=== PATIENT | female | born 1960 | race Caucasian/White ===

== ENCOUNTER 2019-04-21 08:25 | Inpatient (IN) ==
--- NOTE | 2019-03-25 14:50 | PAT Medication Instructions ---
Medication Instructions Date of Service March 25, 2019 Home Medications celecoxib [Celebrex] 200 mg PO BID levothyroxine 25 mcg PO QAM multivitamin 1 tab PO HS travoprost 1 drp OPHTHALMIC (EYE) PM ASK your surgeon for instructions celecoxib [Celebrex] 200 mg PO BID Take morning of surgery With a small sip of water, OTHERWISE NOTHING TO EAT OR DRINK AFTER MIDNIGHT: levothyroxine 25 mcg PO QAM Take evening before surgery multivitamin 1 tab PO HS travoprost 1 drp OPHTHALMIC (EYE) PM Other Notes If you have any questions please call us at [phone] or [phone] or [phone] or [phone]
--- NOTE | 2019-03-26 14:25 | Anesthesiology Consultation ---
Date of Service March 26, 2019 Assessment & Plan (1) Encounter for pre-operative examination: Chart Review Chart Review: Acceptable Risk for Surgery (pending surgeon-ordered PCP clearance scheduled 04/13 (Dr. Mcintosh; [place])) and Patient seen in Pre Admission Testing Teaching & Discussion Pre-Anesthesia Teaching/Discussion Notes: Instructed NPO after midnight before surgery,except medications with 15 cc of water. Medication instructions provided according to the PAT guidelines. History Surgery Operation Date: 04/21/19 10:15 Proposed Procedures p Right Anterior Total Hip Arthroplasty - Ramin Hamilton DO Height/Weight Height: 5 ft 1 in Weight: 73.2 kg Allergies Allergy/AdvReac Type Severity Reaction Status Date / Time No Known Allergies Allergy Verified 03/23/19 07:03 Medications Home Medications Medication Instructions Recorded Confirmed Last Taken celecoxib [Celebrex] 200 mg PO BID 03/23/19 03/23/19 Unknown levothyroxine 25 mcg PO QAM 03/23/19 03/23/19 Unknown multivitamin 1 tab PO HS 03/23/19 03/23/19 Unknown travoprost 1 drp OPHTHALMIC (EYE) PM 03/23/19 03/23/19 Unknown Past Medical History Medical History Diverticular disease Glaucoma Herniated disc L4-L5 (asymptomatic) Hypothyroidism Migraine hx Osteoarthritis Exercise / Class Metabolic Activity II 4-5 Yardwork/Stairs/Walk up hill Past Family History Family History Other No pertinent family history Past Surgical History Surgical History History of bilateral tubal ligation History of cataract surgery bilateral History of colonoscopy History of tonsillectomy S/P bunionectomy bilateral Past Anesthesia History No Hx of Anesthesia Complications and No Family Hx of Anesthesia Complications History of PONV No Hx of PONV and No Hx of Motion Sickness Social History Smoking Status: Former smoker tobacco type: cigarettes Do You Dip or Chew Tobacco: No Smoking End Date: Quit 2014 Hx Alcohol Use: Yes Alcohol type: wine and hard liquor alcohol intake frequency: a few times a week Hx Substance Use: No substance use type: does not use Review of Systems Patient denies chest pain, shortness of breath, dyspnea on exertion, reflux, cough, wheezing, palpitations. Physical Exam Vital Signs VITALS BP right: 168/98; manual recheck on left: 132/90 (Patient advised to followup with PCP regarding elevated BP) P 74 TEMP 98.1 SP02 96%RA RESP 18 PHYSICAL Full neck and c-spine range of motion. Full TMJ range of motion. TMD 3.5 finger breaths Mallampati Score 2 Dentition: intact, crowns upper left side, permanent bridge upper/lower right sides Lungs: clear throughout to auscultation Cardiac: regular rate and rhythm, no murmurs noted Spine: normal Carotid arteries: negative bruit Extremities: no edema Testing Laboratory Results 03/26/19 14:58 03/26/19 14:58 PT 10.4 Seconds (9.0-12.0) 03/26/19 14:58 INR 1.0 (0.9-1.1) 03/26/19 14:58 APTT 24.2 Seconds (21.0-31.0) 03/26/19 14:58 Hemoglobin A1c 5.5 % (4.5-5.6) 03/26/19 14:58 Urine Color Yellow 03/26/19 14:58 Urine Appearance Clear (Clear) 03/26/19 14:58 Urine pH 5.0 (4.5-7.5) 03/26/19 14:58 Ur Specific [place] 1.024 (1.000-1.030) 03/26/19 14:58 Urine Protein Negative (Negative) 03/26/19 14:58 Urine Glucose (UA) Negative (Negative) 03/26/19 14:58 Urine Ketones Negative (Negative) 03/26/19 14:58 Urine Nitrite Negative (Negative) 03/26/19 14:58 Ur Leukocyte Esterase Negative (Negative) 03/26/19 14:58 Blood Type A Positive 03/26/19 14:58 Antibody Screen NEGATIVE 03/26/19 14:58 03/26/19 14:58 Urine Culture - Final Urine,Clean Catch Three types of organisms present, all low counts probable skin christian. No further identifications or sensitivities to follow. Electrocardiogram Date: 03/26/19 Findings: + NSR @ (70) Chest X-Ray Date: 03/26/19 Findings: + NAD
--- NOTE | 2019-03-26 15:37 | XRay Report ---
XR chest Pre-admission PA/Lat HISTORY: Preop. COMPARISON: None. FINDINGS: The lungs are clear. Cardiac silhouette is normal in size. No pleural effusions. No pneumot horax. IMPRESSION: No acute process. Electronically signed by: Trevin Muro M.D. 03/26/2019 3:36 PM
[2019-03-26 15:57] LABS: Basophils # (auto) 0.02 K/uL (0-0.2); Basophils % (auto) 0.4 %; Eosinophils # (auto) 0.08 K/uL (0-0.5); Eosinophils % (auto) 1.8 %; Hematocrit (blood only) 42.8 % (37-47); Hemoglobin 14.3 g/dL (12.0-16.0); Immature Granulocytes # (auto) 0.02 K/uL (0.00-0.02); Immature Granulocytes % (auto) 0.4 %; Lymphocytes # (auto) 1.59 K/uL (1.2-3.4); Lymphocytes % (auto) 35.7 %; Mean Corpuscular Hemoglobin 32.7 pg (25-34); Mean Corpuscular Hgb Conc 33.4 g/dL (32-36); Mean Corpuscular Volume 97.9 fL (80-100); Mean Platelet Volume 10.5 fL (7.4-10.4); Monocytes # (auto) 0.32 K/uL (0.11-0.59); Monocytes % (auto) 7.2 %; Neutrophils # (auto) 2.43 K/uL (1.4-6.5); Neutrophils % (auto) 54.5 %; Platelet Count 189 K/uL (130-400); RDW Standard Deviation 46.6 fL (36.4-46.3); Red Blood Count 4.37 M/uL (4.2-5.4); White Blood Count 4.46 K/uL (4.8-10.8)
[2019-03-26 16:08] LABS: Appearance Urine Clear (Clear); Bilirubin Urine Negative (Negative); Blood Urine Negative (Negative); Color Urine Yellow; Glucose Urine UA Negative (Negative); Ketones Urine Negative (Negative); Leukocyte Esterase Urine Negative (Negative); Nitrite Urine Negative (Negative); Protein Urine Negative (Negative); Specific Gravity Urine 1.024 (1.000-1.030); Urobilinogen Urine Negative (Negative)
[2019-03-26 16:14] LABS: Partial Thromboplastin Ratio 0.9; Partial Thromboplastin Time 24.2 Seconds (21.0-31.0); Prothrombin Time 10.4 Seconds (9.0-12.0)
[2019-03-26 16:15] LABS: Albumin Level 4.1 gm/dl (3.4-5.0); BUN Creatinine Ratio 16.5 (10-20); Calcium 9.7 mg/dl (8.5-10.1); Creatinine Clr Calc Pharmacy 58.3 ml/min; Est GFR (Non-African American) 65.6; Potassium 4.3 mmol/L (3.5-5.1)
[2019-03-27 06:59] LABS: Estimated Average Glucose 111 mg/dl; Hemoglobin A1C 5.5 % (4.5-5.6)
--- NOTE | 2019-04-20 13:28 | History & Physical Report ---
Date of Service April 20, 2019 Assessment & Plan (1) Degenerative joint disease of right hip: I have indicated the patient for right anterior total hip replacement. The risks, benefits and complications of surgery were explained to the patient which include but not limited to infection, acute blood loss, DVT/PE, injury to nerves, vessels, bone, soft tissue, arthrofibrosis, chronic pain, failure of the prosthesis, hip dislocation, leg length discrepancy, need for additional surgery, cardiac and pulmonary events and . The patient wished to proceed with surgery and informed consent was obtained at this time. We will plan for ASA BID post-operatively for DVT prophylaxis. Upon discharge the patient will be discharged home with home health services. Appropriate clearances by PCP were obtained. History of Present Illness Chief Complaint: Right hip pain/djd Primary Care Provider: Dr. Mcintosh The patient is a 59 year old female who presents with complaints of severe left hip pain and DJD. The patient has failed outpatient conservative treatments to this point which included NSAIDs, IA corticosteroid inj, PT and a home exercise/walking program. The patient's pain and limited function have progressed to the point where they severely hinder their activities of daily living and they no longer tolerate exercise programs. They are requesting to proceed with total hip replacement surgery. Allergies Allergy/AdvReac Type Severity Reaction Status Date / Time No Known Allergies Allergy Verified 04/21/19 08:39 Home Medications Home Medications Medication Instructions Recorded Confirmed Type celecoxib [Celebrex] 200 mg PO BID 03/23/19 04/21/19 History levothyroxine 25 mcg PO QAM 03/23/19 04/21/19 History multivitamin 1 tab PO HS 03/23/19 04/21/19 History travoprost 1 drp OPHTHALMIC (EYE) PM 03/23/19 04/21/19 History Past Med/Surg History Medical History Diverticular disease Glaucoma Herniated disc L4-L5 (asymptomatic) Hypothyroidism Migraine hx Osteoarthritis Surgical History History of bilateral tubal ligation History of cataract surgery bilateral History of colonoscopy History of tonsillectomy S/P bunionectomy bilateral Family History Other No pertinent family history Social History Preferred Language: Yakut Communication Ability: Effective Insurance Law Specialist Required: No Beliefs That Will Affect Care: None Current Living Situation: Significant Other Other Information That Helps Us Care for You: No Feels Safe at Home: Yes Safety Concerns: Feels Safe At This Time Smoking Status: Former smoker Tobacco Type: cigarettes ; Do You Dip or Chew Tobacco: No ; Smoking End Date: Quit 2014 ; Second Hand Exposure: No ; Tobacco Cessation Education Requested by Patient: No Hx Alcohol Use: Yes Alcohol type: wine and hard liquor Hx Substance Use: No Review of Systems Review of Systems: All systems reviewed & are unremarkable except as noted in HPI & below Constitutional: as per Subjective / HPI Physical Exam Physical Exam: RLE NVSI +EHL/FHL/TA/GS SILT grossly, +2 DP pulse, compartments soft NT, limited painful ROM of the hip, antalgic gait. Constitutional: WD/WN, vitals as above Eyes: PERRL, conjunctivae normal, anicteric sclerae ENMT: external ear and nose normal, oropharynx normal Neck: trachea midline, no thyromegaly Respiratory: normal respiratory effort, lungs clear to auscultation Cardiovascular: RRR, no murmur, no edema Gastrointestinal (Abdomen): normal bowel sounds, soft, nontender, no hepatosplenomegaly Musculoskeletal: no cyanosis or clubbing, extremities motor strength 5/5 Skin: no rashes, warm and dry Neurologic: patellar DTR's 2+ bilat, sensation intact Psychiatric: A+Ox3, euthymic affect Lymphatic: no cervical or axillary lymphadenopathy Results & Data Diagnostic Findings Multiple views of the hip demonstrates severe DJD with complete loss of the joint space. +osteophytes, +sclerosis, +subchondral cysts.
[~2019-04-21 08:25] MED LIST: ACETAMINOPHEN 500 MG TAB PO SCH; BUPIVACAINE 0.5 % 5 MG/1 ML PF 10ML VIAL ONE; CEFAZOLIN 1000MG 1,000 MG/7.5 ML SYR IV SCH; CeleBREX 200 MG CAP PO SCH; FAMOTIDINE 20 MG TAB PO SCH; LR 500ML BOLUS, THEN 15ML/HR IV SCH; METOCLOPRAMIDE HCL 10 MG TABLET PO SCH; ROPIVACAINE 0.5% HCL/PF 150 MG, BUPIVACAINE 0.5% MPF 30 ML, EPINEPHrine 30MG/30ML (OR U... INSTIL SCH; TRANEXAMIC ACID 1,000 MG **IV Intra-op IV SCH; TRANEXAMIC ACID 1,000 MG **IV Pre-op IV SCH; dexAMETHasone 4 MG TAB PO SCH
--- NOTE | 2019-04-21 09:06 | History & Physical Bridge Note ---
Date of Service April 21, 2019 History & Physical Bridge Note I have examined the patient, reviewed the History & Physical and in the interval since the performance of the History & Physical I have noted the following changes of clinical significance: no changes noted
[2019-04-21] MEDS ORDERED: ORTHO JOINT ANESTHETIC ONE (09:11)
[2019-04-21] MEDS ORDERED: BACITRACIN INJ 50,000 UNIT VIAL ONE ×2 (09:11→10:04)
[2019-04-21] MEDS ORDERED: MIDAZOLAM HCL 1 MG/ML 2ML VIAL ONE ×2 (09:16→10:43)
[2019-04-21] MEDS ORDERED: LIDOCAINE HCL 2% 2 ML VIAL/AMP(20MG/ML) INFIL ONE ×2 (09:16→11:14)
[2019-04-21] MEDS ORDERED: fentaNYL citrate 100 MCG/2 ML VIAL ONE (09:16)
[2019-04-21] MEDS ORDERED: PROPOFOL IV EMULSION 10 MG/ML 20 ML VIAL IV ONE ×2 (09:16→11:14)
[2019-04-21] MEDS ORDERED: fentaNYL citrate 100 MCG/2 ML VIAL IV PRN (09:20)
[2019-04-21] MEDS ORDERED: ATROPINE SULFATE 0.1 MG/ML 10ML SYR IV PRN (09:20)
[2019-04-21] MEDS ORDERED: ePHEDrine sulfate 50 MG/ML AMP IV PRN (09:20)
[2019-04-21] MEDS ORDERED: ONDANSETRON INJ 2 MG/ML 2 ML VIAL IV PRN ×2 (09:20→13:11)
--- NOTE | 2019-04-21 11:13 | Post Operative Brief Note ---
Immediate Post Op Note v1 Date of Surgery April 21, 2019 Pre & Post Diagnosis Operation Date: 04/21/19 10:15 Pre-Op Diagnosis: RIGHT HIP OSTEOARTHRITIS Post-Op Diagnosis: RIGHT HIP OSTEOARTHRITIS Procedure Operation Date: 04/21/19 10:15 Actual Procedures p Right Anterior Total Hip Arthroplasty, uncemented(Right) - Ramin Hamilton DO Surgeon Ramin Hamilton DO Orthotic/Prosthetic Clinician Laurent Nichols Estimated Blood Loss 85 Findings Consistent with Post-Op Diagnosis Fluids 800 cc LR Specimens femoral head Anesthesia Type Spinal MAC Complications none Disposition Disposition: Recovery Room Overlapping Procedure I was present for: the critical portions of procedure. I was immediately available: during the entire case. Back up surgeon: was not required during procedure.
[2019-04-21] MEDS ORDERED: PHENYLEPHRINE 100MCG/ML 5ML SYR ONE (11:14)
[2019-04-21] MEDS ORDERED: ePHEDrine sulfate 50 MG/ML SYR ONE (11:14)
--- NOTE | 2019-04-21 12:06 | Operative Report ---
Post Operative Report Pre & Post Diagnosis Operation Date: 04/21/19 10:15 Pre-Op Diagnosis: RIGHT HIP OSTEOARTHRITIS Post-Op Diagnosis: RIGHT HIP OSTEOARTHRITIS Procedure Operation Date: 04/21/19 10:15 Actual Procedures p Right Anterior Total Hip Arthroplasty, uncemented(Right) - Ramin Hamilton DO Surgeon Ramin Hamilton DO Certified Addiction Counselor Laurent Nichols Estimated Blood Loss 85 Findings Consistent with Post-Op Diagnosis Specimens Femoral head Drains None Anesthesia Type Spinal MAC Complications none Disposition Disposition: Recovery Room Indications The patient is a 59-year-old female who presents with severe progressive right hip DJD who has failed outpatient conservative treatments. I indicated the patient for a anterior total hip replacement and the risks and benefits were explained in detail which include but not limited to infection, bleeding, blood clot, damage to surrounding bone, nerves, vessels, soft tissue, hip dislocation, failure of the prosthesis, leg length discrepancy, need for additional surgery and . The patient agreed to proceed with replacement of the hip and informed consent was obtained. Appropriate clearances were obtained. Description of Procedure COMPONENTS USED: [employer] [employer] [facility] hip system: Acetabulum size 50, femur size 6 high offset, femoral head 32+0, liner 5032, acetabular screw 25 mm x 1. DESCRIPTION OF PROCEDURE: Following satisfactory spinal anesthesia, the patient was placed supine on the OR table. The left leg was placed in the well leg [place] and the right leg in the traction device. The right leg was prepared with ChloraPrep and draped sterilely. A surgical timeout was performed, patient identified and site jamil verified. Appropriate antibiotics were given. A standard anterior approach in the interval between the sartorius and tensor muscles was performed. Dissection was carried down through subcutaneous tissues. Electrocautery was utilized for hemostasis. Circumflex femoral vessels were identified, tied and ligated. The anterior capsular fat pad was removed and the capsulotomy was performed revealing the arthritic femoral neck and head. A femoral neck cut was made with reciprocating saw and the bone fragments removed. The acetabular self-retraining retractor was placed. Acetabular reaming was completed under fluoroscopic guidance, a 50 shell was impacted into an anatomic position and secured with a dome screw. Local anesthetic was placed and following irrigation, the polyethylene liner was placed. The femur was placed into position of external rotation, extension and adduction. Femoral canal was prepared up to the size 6 high offset. Trial reduction with a +0 neck length head showed good soft tissue tension, leg lengths restored, and good fit and fill of the proximal canal using fluoroscopic landmarks. The hip was dislocated. The trial component was removed. The final implant was placed. The hip was irrigated with sterile saline solution and reduced. A Betadine soak was performed. After 3 minutes, the hip was once more irrigated with copious sterile saline solution with bacitracin. Marry-incisional soft tissue was injected utilizing [place] [facility] which includes a combination of Ropivicaine 0.5% 150mg, Bupivicaine 0.5%/Epinephrine 1:200,000 30ml, Toradol 30mg, Dexamethasone 4mg, Ketamine 10mg, Clonidine 100mcg and NSS 30ml solution. The capsule was then closed with 1-0 Vicryl interrupted figure of eight sutures. The fascia was closed with a running suture of #1 Vicryl, the subcutaneous tissues with 2-0 Vicryl and the skin with a running subcuticular stitch of 3-0 V-Loc. Dermabond prineo and a dry dressing were applied. The patient tolerated the procedure well and was transported to PACU in stable condition. Due to the complex nature of the procedure, the entire surgery was performed with the operational assistance of Laurent Nichols PA-C. The medical assistant prn, under direct supervision, was involved in the actual performance of all aspects of the surgical procedure including patient positioning, hemostasis, tissue retraction, instrument management and wound closure. I attest to the content of the Intraoperative Record and any orders documented therein. Any exceptions are noted below.
--- NOTE | 2019-04-21 12:15 | XRay Report ---
XR hip 1V RT w pelvis CLINICAL HISTORY: Postoperative evaluation. COMPARISON: None FINDINGS: Alignment of the total right hip arthroplasty is anatomic. There is no periprosthetic frac ture or unexpected radiopaque foreign body. Acetabular screw is in place. IMPRESSION: Expected findings following total right hip arthroplasty. Electronically signed by: Carlos Méndez M.D. 04/21/2019 12:14 PM
--- NOTE | 2019-04-21 12:20 | Orthopedic Progress Note ---
Date of Service April 21, 2019 Assessment & Plan (1) Degenerative joint disease of right hip: Status post right anterior total hip arthroplasty -Ancef x24 -DVT prophylaxis SCDs, teds, ASA twice daily -Weight-bear as tolerates right lower extremity -PT/OT -Postoperative x-ray demonstrates well aligned well fixed orthopedic prosthesis without evidence of or dislocation -A.m. labs -DC planning Subjective Post Operative Progress Note Patient seen in PACU, comfortable, denies complaints, pain well controlled, no acute issues. Still feeling the effects of spinal anesthesia. Review of Systems Review of Systems: All systems reviewed & are unremarkable except as noted in HPI & below Constitutional: as per Subjective / HPI Physical Exam Physical Exam: Right lower extremity physical exam limited secondary to spinal anesthesia, +2 dorsalis pedis pulse, compartment soft nontender, dressing clean dry and intact. Constitutional: WD/WN, vitals as above Results & Data Vital Signs (Past 12 Hours) Vital Signs Temp Pulse Pulse Resp BP Pulse Ox 04/21/19 12:05 85 18 117/73 94 04/21/19 11:55 81 16 121/71 94 04/21/19 11:45 36.4 C L 95 H 16 112/69 94 04/21/19 08:47 36.5 C 88 18 171/107 H 96
--- NOTE | 2019-04-21 12:25 | Anesthesiology Progress Note ---
Date of Service April 21, 2019 Anesthesia Post Procedure Vital Signs Vital Signs: Temp Pulse Pulse Resp BP Pulse Ox 04/21/19 12:15 78 16 118/75 95 04/21/19 12:05 85 18 117/73 94 04/21/19 11:55 81 16 121/71 94 04/21/19 11:45 97.5 F L 95 H 16 112/69 94 04/21/19 08:47 97.7 F 88 18 171/107 H 96 Pain Intensity Right Hip: Pain Intensity: 3 Transfer of Care Handoff Completed per policy Notes Mental Status: alert / awake / arousable and participated in evaluation Patient Amnestic to Procedure: Yes Nausea / Vomiting: adequately controlled Pain: adequately controlled Airway Patency, RR, SpO2: stable & adequate BP & HR: stable & adequate Hydration State: stable & adequate Neuraxial Anesthesia: was administered and sensory block is resolving Anesthetic Complications: no major complications apparent and Pt Satisfied with anesthetic care
--- NOTE | 2019-04-21 13:01 | Fluoroscopy Report ---
FL hip RT 1V CLINICAL HISTORY: RT ANTERIOR HIParthroplasty. COMPARISON STUDY: None. FLUOROSCOPY TIME: 46 seconds. FINDINGS: 2 fluoroscopic spot images of the right hip demonstrate a right total hip arthroplasty. The hardware is intact. No fracture or dislocation. IMPRESSION: Fluoroscopy provided for right total hip arthroplasty. Electronically signed by: Trevin Muro M.D. 04/21/2019 1:00 PM
[2019-04-21] MEDS ORDERED: HYDROmorphone INJ 0.5 MG/0.5 ML SYR IV PRN (13:11)
[2019-04-21] MEDS ORDERED: OXYCODONE HCL IR 5 MG TAB (IMMEDIATE RELEASE) PO PRN (13:11)
[2019-04-21] MEDS ORDERED: NALOXONE HCL 0.4 MG/1 ML VIAL/CARP IV PRN (13:11)
[2019-04-21] MEDS ORDERED: MAGNESIUM HYDROXIDE SUSP 30 ML UDC PO PRN (13:11)
[2019-04-21] MEDS ORDERED: BISACODYL 10 MG SUPP PR PRN (13:11)
[2019-04-21] MEDS ORDERED: METOCLOPRAMIDE HCL INJ 5 MG/ML 2 ML VIAL IV PRN (13:11)
[2019-04-21] MEDS: ACETAMINOPHEN 500 MG TAB PO SCH ×2 (15:08→22:10)
[2019-04-21] MEDS: KETOROLAC TROMETHAMINE 15 MG/ML VIAL IV SCH ×2 (15:09→19:43)
[2019-04-21] MEDS: CEFAZOLIN 1000MG 1,000 MG/7.5 ML SYR IV SCH (17:35)
[2019-04-21] MEDS: SODIUM CHLORIDE 0.9% 1000ML 1,000 ML IV SCH (19:43)
[2019-04-21] MEDS: DOCUSATE SODIUM 100 MG CAP PO SCH (19:47)
[2019-04-21] MEDS: ASPIRIN 325 MG ECTAB PO SCH (19:48)
[2019-04-21] MEDS ORDERED: SENNA 8.6 MG TAB PO SCH (21:00)
[2019-04-21] MEDS ORDERED: TRAVOPROST Z 0.004% OPH SOLN 2.5 ML BTL OP SCH (21:00)
[2019-04-22] MEDS: CEFAZOLIN 1000MG 1,000 MG/7.5 ML SYR IV SCH (01:18)
[2019-04-22] MEDS: KETOROLAC TROMETHAMINE 15 MG/ML VIAL IV SCH ×2 (01:18→08:37)
[2019-04-22] MEDS: SODIUM CHLORIDE 0.9% 1000ML 1,000 ML IV SCH (05:30)
[2019-04-22] MEDS: ACETAMINOPHEN 500 MG TAB PO SCH ×2 (05:35→13:11)
[2019-04-22 06:06] LABS: Basophils # (auto) 0.01 K/uL (0-0.2); Basophils % (auto) 0.1 %; Hematocrit (blood only) 34.9 % (37-47); Hemoglobin 11.8 g/dL (12.0-16.0); Immature Granulocytes # (auto) 0.02 K/uL (0.00-0.02); Immature Granulocytes % (auto) 0.2 %; Lymphocytes % (auto) 6.3 %; Mean Corpuscular Hemoglobin 32.2 pg (25-34); Mean Corpuscular Hgb Conc 33.8 g/dL (32-36); Mean Corpuscular Volume 95.4 fL (80-100); Mean Platelet Volume 10.1 fL (7.4-10.4); Monocytes # (auto) 0.64 K/uL (0.11-0.59); Neutrophils # (auto) 11.31 K/uL (1.4-6.5); Neutrophils % (auto) 88.4 %; Platelet Count 167 K/uL (130-400); RDW Standard Deviation 45.3 fL (36.4-46.3); Red Blood Count 3.66 M/uL (4.2-5.4); White Blood Count 12.78 K/uL (4.8-10.8)
[2019-04-22] MEDS ORDERED: LEVOTHYROXINE SODIUM 25 MCG TABLET PO SCH (06:30)
[2019-04-22 06:44] LABS: BUN Creatinine Ratio 13.5 (10-20); Calcium 8.9 mg/dl (8.5-10.1); Creatinine Clr Calc Pharmacy 55.7 ml/min; Est GFR (African American) 72.3; Est GFR (Non-African American) 62.4; Potassium 4.3 mmol/L (3.5-5.1)
--- NOTE | 2019-04-22 07:36 | Orthopedic Progress Note ---
Date of Service April 22, 2019 Assessment & Plan (1) Degenerative joint disease of right hip: POD 1 s/p Right Anterior LUANNE PT/OT protocol. WBAT with walker DVT Prophylaxis - ASA bid, SCD's, JOANN hose Pain management - Oxycodone, Tylenol,Hydromorphone DC plans - home with home health Supervising Physician Co-Signing Physician Notes Patient seen and examined, agree with above assessment and plan. Patient feeling well, VSS, denies any repeat episode of feeling light headed or dizzy. Subjective POD 1 s/p Right Anterior LUANNE Pt awake, alert this AM. Mild soreness around the operative site but otherwise, no complaints. She states she did pass out last night well getting OOB to the BR. Upon returning from the BR, pt began feeling hot and dizzy and was being placed back in bed when she passed out. She doesn't remember passing out. She recovered quickly and later walked around the corridor twice without incident. This AM she feels well and is anxious to get up with PT. Denies SOB,CP, LH. Review of Systems Review of Systems: All systems reviewed & are unremarkable except as noted in HPI & below Constitutional: as per Subjective / HPI Physical Exam Physical Exam: Dressing C/D/I; thigh soft, NT. Calves soft, NT. NV intact. Toes mobile. Hip located. Results & Data Vital Signs (Past 12 Hours) Vital Signs Temp Pulse Resp BP BP Pulse Ox 04/22/19 07:04 36.6 C 92 H 16 133/91 94 04/22/19 03:43 36.8 C 94 H 16 118/74 95 04/21/19 22:53 36.7 C 99 H 16 116/78 95 Laboratory Results Laboratory Results WBC 12.78 K/uL (4.8-10.8) H 04/22/19 05:41 RBC 3.66 M/uL (4.2-5.4) L 04/22/19 05:41 Hgb 11.8 g/dL (12.0-16.0) L 04/22/19 05:41 Hct 34.9 % (37-47) L 04/22/19 05:41 MCV 95.4 fL (80-100) 04/22/19 05:41 MCH 32.2 pg (25-34) 04/22/19 05:41 MCHC 33.8 g/dL (32-36) 04/22/19 05:41 RDW Std Deviation 45.3 fL (36.4-46.3) 04/22/19 05:41 RDW Coeff of Juanjo 13.0 % (11.5-14.5) 04/22/19 05:41 Plt Count 167 K/uL (130-400) 04/22/19 05:41 MPV 10.1 fL (7.4-10.4) 04/22/19 05:41 Immature Gran % (Auto) 0.2 % 04/22/19 05:41 Neut % (Auto) 88.4 % 04/22/19 05:41 Lymph % (Auto) 6.3 % 04/22/19 05:41 [place] % (Auto) 5.0 % 04/22/19 05:41 Eos % (Auto) 0.0 % 04/22/19 05:41 Baso % (Auto) 0.1 % 04/22/19 05:41 Immature Gran # (Auto) 0.02 K/uL (0.00-0.02) 04/22/19 05:41 Neut # (Auto) 11.31 K/uL (1.4-6.5) H 04/22/19 05:41 Lymph # (Auto) 0.80 K/uL (1.2-3.4) L 04/22/19 05:41 [place] # (Auto) 0.64 K/uL (0.11-0.59) H 04/22/19 05:41 Eos # (Auto) 0.00 K/uL (0-0.5) 04/22/19 05:41 Baso # (Auto) 0.01 K/uL (0-0.2) 04/22/19 05:41 PT 10.4 Seconds (9.0-12.0) 03/26/19 14:58 INR 1.0 (0.9-1.1) 03/26/19 14:58 APTT 24.2 Seconds (21.0-31.0) 03/26/19 14:58 PTT Ratio 0.9 03/26/19 14:58 Sodium 141 mmol/L (136-145) 04/22/19 05:41 Potassium 4.3 mmol/L (3.5-5.1) 04/22/19 05:41 Chloride 110 mmol/L (98-107) H 04/22/19 05:41 Carbon Dioxide 24 mmol/L (21-32) 04/22/19 05:41 Anion Gap 7.0 (3-11) 04/22/19 05:41 BUN 13 mg/dl (7-18) 04/22/19 05:41 Creatinine 0.99 mg/dl (0.6-1.2) 04/22/19 05:41 Est Cr Clr Drug Dosing 55.7 ml/min 04/22/19 05:41 Est GFR ( Amer) 72.3 04/22/19 05:41 Est GFR (Non-Af Amer) 62.4 04/22/19 05:41 BUN/Creatinine Ratio 13.5 (10-20) 04/22/19 05:41 Glucose 117 mg/dl (70-99) H 04/22/19 05:41 Estimat Average Glucose 111 mg/dl 03/26/19 14:58 Hemoglobin A1c 5.5 % (4.5-5.6) 03/26/19 14:58 Calcium 8.9 mg/dl (8.5-10.1) 04/22/19 05:41 Albumin 4.1 gm/dl (3.4-5.0) 03/26/19 14:58 Urine Color Yellow 03/26/19 14:58 Urine Appearance Clear (Clear) 03/26/19 14:58 Urine pH 5.0 (4.5-7.5) 03/26/19 14:58 Ur Specific [place] 1.024 (1.000-1.030) 03/26/19 14:58 Urine Protein Negative (Negative) 03/26/19 14:58 Urine Glucose (UA) Negative (Negative) 03/26/19 14:58 Urine Ketones Negative (Negative) 03/26/19 14:58 Urine Blood Negative (Negative) 03/26/19 14:58 Urine Nitrite Negative (Negative) 03/26/19 14:58 Urine Bilirubin Negative (Negative) 03/26/19 14:58 Urine Urobilinogen Negative (Negative) 03/26/19 14:58 Ur Leukocyte Esterase Negative (Negative) 03/26/19 14:58 Blood Type A Positive 03/26/19 14:58 Antibody Screen NEGATIVE 03/26/19 14:58
[2019-04-22] MEDS: ASPIRIN 325 MG ECTAB PO SCH (08:34)
[2019-04-22] MEDS: DOCUSATE SODIUM 100 MG CAP PO SCH (08:35)
[2019-04-22] MEDS ORDERED: MULTIVITAMIN TAB PO SCH (09:00)
[2019-04-22] MEDS ORDERED: CeleBREX 200 MG CAP PO SCH (13:00)
--- NOTE | 2019-04-23 21:43 | Discharge Summary ---
Date of Service April 23, 2019 Admission HPI Per Admitting Provider The patient is a 59 year old female who presents with complaints of severe right hip pain and DJD. The patient has failed outpatient conservative treatments to this point which included NSAIDs, IA corticosteroid inj, PT and a home exercise/walking program. The patient's pain and limited function have progressed to the point where they severely hinder their activities of daily living and they no longer tolerate exercise programs. They are requesting to proceed with total hip replacement surgery. Principal Diagnosis Right anterior total hip replacement Discharge Exam RLE NVSI +EHL/FHL/TA/GS SILT grossly, +2 DP pulse, compartments soft NT, dressing cdi. Constitutional WD/WN, vitals as above Discharge Data Allergies Allergy/AdvReac Type Severity Reaction Status Date / Time hydrocodone AdvReac Mild Dizziness Verified 04/21/19 09:13 Consultations 04/22/19 08:00 Consult Case Management - Discharge Planning Routine Procedures Performed Operation Date: 04/21/19 10:15 Actual Procedures p Right Anterior Total Hip Arthroplasty, uncemented(Right) - Ramin Hamilton DO Ordered Studies 04/21/19 07:15 FL fluoroscopy <1hr Routine FL hip RT 1V Routine Hospital Course (1) Degenerative joint disease of right hip: The patient is a 59 -year-old female who presents with long standing history of severe right hip DJD and failed outpatient conservative treatments including NSAIDs, bracing, injections and home walking/exercise program. The patient's symptoms have progressed to the point where it has been difficult to perform even normal activities of daily living. I indicated the patient for a right anterior total hip arthroplasty, the risks, benefits and complications of the procedure include but not limited to infection, bleeding, damage to bone, nerves, vessels, surrounding soft tissue, may develop blood clots, loss of function, leg length discrepancy, dislocation, failure of the components, loosening of the components, the need for additional surgery and . The patient wished to proceed with surgery at this time and informed consent was obtained. Hospital Course: On 04/21/19 the patient was taken to the operating room, adequate anesthesia administered and underwent a right anterior total hip arthroplasty. The patient tolerated the procedure well and was taken to the PACU in stable condition. Post-operatively the patient was started on a DVT ppx medication and given appropriate IV antibiotics. Consults were placed to physical therapy, occupational therapy and case management. Patient had an isolated incident of witness syncope while sitting in bed, VSS were monitored, patient had no recurrent symptoms. On POD#1, the patient did well overnight and their pain was well controlled. Labs were drawn and the Hgb was 11.8. The patient progressed well with PT. Dressings were changed at this time and the incision was clean, dry and intact. The patients hospital stay was relatively uneventful and they were deemed stable by the orthopedic team and consultants to be discharged home with on 04/22/19. Discharge Instructions: Upon discharge the patient may weight bear as tolerates through their operative extremity. They were instructed to keep the incision clean and dry at all times. The patient may shower but should not submerge the incision, avoid bathing, pools and hot tubes. The patient was given a script for pain medication and should take as instructed. The patient was given a script for DVT ppx 325mg ASA BID and should take as directed. The patient was instructed to not drive or travel for long distances until cleared to do so. If the patient develops any symptoms of fevers, chills, nausea, vomiting, increased redness, swelling, pain or drainage from the surgical site, they should notify the office and/or proceed to the nearest emergency room. The patient should follow up in 10-14 days after surgery for their routine post-operative follow-up appointment and should call the office to confirm the date and time. POD 1 s/p Right Anterior LUANNE PT/OT protocol. WBAT with walker DVT Prophylaxis - ASA bid, SCD's, JOANN hose Pain management - Oxycodone, Tylenol,Hydromorphone DC plans - home with home health Total Time Total Time Spent Total Time Spent (In Minutes): 30 minutes Total Time Includes: Examination of the Patient, Discharge Planning, Medication Reconciliation and Communication With Other Providers Discharge Plan Discharge Items Patient Disposition: Home - Home Health Services Reason For Visit: RIGHT HIP OSTEOARTHRITIS Discharge Diagnosis: Right anterior total hip replacement Discharge Goals: Decrease discomfort, Improve function, Increase independence and Therapeutic intervention Activity: Per 'Additional Instructions' section Lifting: Wait until after follow-up appointment Bathing Comment: No bathing, pools or hot tubs. Sexual Activity: Wait until after follow-up appointment Exercise/Sports: Wait until after follow-up appointment Driving/Machine Use Comment: No driving till cleared by your surgeon Weightbearing: Right weightbearing Non-emergency contact: Primary Care Provider and Surgeon Call non-emergency contact if: you have any medication questions, your symptoms worsen, your pain is not controlled, your pain is worsening, your pain is unusual for you, your pain is concerning for you, you have a fever, your temperature is above 100.5, your temperature is above 101, your wound has increased redness, your wound has increased drainage and your wound pain has increased Follow-up/Referrals: PCP,NO [Primary Care Provider] - Diet: Regular Addtl Provider Instructions: ACTIVITY RECOMMENDATIONS: SELF CARE INSTRUCTIONS AFTER TOTAL HIP REPLACEMENT : Direct Anterior Approach Until the incision and soft tissues around your hip have healed, there is a possibility that the hip prosthesis could dislocate. A. Hip flexion ( Up & Down out of chair or steps ) may be difficult. This is normal. B. Numbness in front of the thigh is also normal for a few weeks. C. Use hand rails when walking on stairs. D. Wear low heeled shoes with non-slip soles. E. Be sure that your floors are free of things that could trip you - throw rugs, electrical cords, small objects. Avoid wet and waxed floors, especially with crutches and canes. F. Try to walk several times a day with rest periods between. G. Continue with all the exercises taught to you in the hospital. Again, make walking a part of your daily routine. SPECIAL CARE INSTRUCTIONS: VERY IMPORTANT TO READ AND REVIEW A. You may still be at risk for phlebitis and blood clots. 1. Wear surgical stockings (JOANN hose) for 2 weeks after surgery to improve circulation and reduce swelling. 2. Take Aspirin 325mg twice daily for 4 weeks or as directed by your doctor. This is your blood thinner. 3. High risk patients may be prescribed a stronger blood thinner if necessary. 4. If you are on Coumadin normally, your family doctor/leasing sales consultant should monitor your blood work. Expect a phone call the day of or the day after bloodwork is drawn to adjust your dosage. B. You must take antibiotics before having dental work, bladder, bowel and other surgery. Your doctor will provide you with a permanent card to carry describing precautions. C. Call [facility] if you have a fever, redness or swelling around the incision, cloudy drainage from incision, or sudden increase in pain in your hip, not relieved by your regular pain medication. D. Please call the office at if you have any concerns or questions about your operation or recovery. * YOU MAY SHOWER, NO TUB BATHS UNTIL CLEARED BY YOUR DOCTOR. - Keep an extra close eye on the top portion of your incision. Be sure to keep clean & dry. * WEAR JOANN HOSE 20 HOURS PER DAY FOR 2 WEEKS. * YOU MAY PROGRESS FROM A WALKER, TO A CANE, TO INDEPENDENT AT YOUR OWN PACE. * MOST PATIENTS WILL HAVE HOME NURSING FOR THERAPY. IF YOU DECIDE TO DO OUTPATIENT PHYSICAL THERAPY, PLEASE SCHEDULE THIS 3 TIMES PER WEEK. * DERMABOND Prineo- This is a mesh tape dressing that is covered with glue. It should remain in place until the incision is properly healed, usually 10-14 days. This dressing is designed to naturally slough off. You may trim the excess mesh tape as it peels off. Incision may be briefly wet in a shower. Dry immediately by blotting with a clean, dry towel. Do not bath or swim until instructed by your doctor. Do not scratch, rub, or pick at the dressing. Do not apply any topical ointments or lotions until dressing is completely removed and/or instructed by your doctor. There may be a small piece of suture material at one end of your incision. Do not pull or trim this. If it is bothersome or catching on clothing, you may cover it with a band-aid. FOLLOW UP VISIT: If appointment is not already scheduled: Please call [facility] to make a follow-up appointment for 2 weeks after your surgery at . Prescriptions: New acetaminophen [Tylenol Extra Strength] 500 mg Tablet 1,000 mg PO Q8 PRN (Reason: fever or pain) Qty: 90 RF: 0 celecoxib [Celebrex] 200 mg Capsule 200 mg PO BID PRN (Reason: pain) Qty: 28 RF: 0 aspirin 325 mg Tablet,Delayed Release (Dr/Ec) 325 mg PO BID Qty: 56 RF: 0 sennosides [Senokot] 8.6 mg Tablet 17.2 mg PO HS PRN (Reason: constipation) Qty: 28 RF: 0 tramadol 50 mg Tablet 50 mg PO Q4H PRN (Reason: pain) Qty: 18 RF: 0 Continued multivitamin Tablet 1 tab PO HS RF: 0 travoprost 0.004 % Drops 1 drp OPHTHALMIC (EYE) PM RF: 0 levothyroxine 25 mcg Tablet 25 mcg PO QAM RF: 0 Discontinued celecoxib [Celebrex] 200 mg Capsule 200 mg PO BID RF: 0 Stand-Alone Forms: [facility] Discharge Orders: Discharge Order (Routine); Ordered 04/22/19 Ordered By: Laurent Nichols Admission Data Admit Date/Time: 04/21/19 11:48 Attending Provider: Ramin Hamilton Admit Provider: Ramin Hamilton Primary Care Provider: PCP,NO Service: Surgical Services Other Interventions: Discharge Summary Assessment (RN) Last Done: 04/22/19 13:15 DC Date/Time DO NOT enter until pt leaves facility: 04/22/19 14:05
== END 2019-04-22 14:05 | disposition home health service (06) | DRG 470 ==
LOC: ASU 08:25 → 3E 11:48